=== PATIENT | female | born 1995 | race Two or more races ===

== ENCOUNTER 2016-12-22 10:58 | Emergency (ER) | payer MEDICAID ==
[~2016-12-22 10:58] MED LIST: NO MEDS
--- NOTE | 2016-12-22 11:00 | NUR ---
PT CALLED TO TRIAGE, PT NOT IN WAITING ROOM
== END 2016-12-22 11:25 | disposition left against medical advice (07) ==
LOC: ER 10:59
DX: Z53.21 Procedure and treatment not carried out due to patient leaving prior to being seen by health care provider (principal)

== ENCOUNTER 2016-12-29 17:42 | Emergency (ER) | payer MEDICAID, OTHER ==
[~2016-12-29] VITALS: Ht 160 cm; Wt 54.9 kg
[2016-12-29 17:46] VITALS: BP 107/75
--- NOTE | 2016-12-29 17:50 | NUR ---
PATIENT BIB MOTHER C/O SORE THROAT X 2 DAYS. NO FEVER, VITALS STABLE. NO SOB. SAFETY AND COMFORT MEASURES IN PLACE. AWAITING MD ORDERS.
[2016-12-29] MEDS ORDERED: PENICILLIN G BENZATHINE 2.4 MMU/4 ML ML IM STA (18:24)
[2016-12-29] MEDS ORDERED: PENICILLIN G BENZATHINE 2.4 MMU/4 ML ML IM ONE (18:26)
--- NOTE | 2016-12-29 18:35 | NUR ---
PATIENT ADMINISTERED IM [facility] G ON RIGHT GLUTEUS.
--- NOTE | 2016-12-29 18:41 | NUR ---
Patient discharged to home in stable condition. Written and verbal after care instructions given. Patient verbalizes understanding of instruction.
== END 2016-12-29 18:47 | disposition home or self-care (01) ==
LOC: ER 17:43
DX: J02.9 Acute pharyngitis, unspecified (principal); F17.200 Nicotine dependence, unspecified, uncomplicated
CPT/HCPCS: A4606; J0558; Z7610